=== PATIENT | male | born 1995 | race Two or more races ===

== ENCOUNTER 2022-05-04 22:48 | Emergency (ER) | payer OTHER ==
[2022-05-04 22:55] VITALS: BP 115/76; PULSE 94; RESP 17; TEMP 98.9; BMI 31.1
[2022-05-05] MEDS ORDERED: SODIUM CHLORIDE 0.9% 500 ML INFUS.BAG IV ONE (01:09)
[2022-05-05] MEDS ORDERED: ACETAMINOPHEN 1000 MG/100 ML BAG IVPB ONE (01:10)
[2022-05-05] MEDS ORDERED: ACETAMINOPHEN INJECTION 100 ML IVPB ONE (01:27)
[2022-05-05 01:41] LABS: HEMATOCRIT 44.8 % (35.4-49); HEMOGLOBIN 14.5 GM/dL (11.7-16.9); MCH 21.8 pg (25.7-33.7); MCHC 32.4 g/dl (32.0-35.9); MEAN CELL VOLUME 67.4 fl (80-96); MEAN PLT VOLUME 9.1 fl (7.5-11.1); PLATELET COUNT 205 10^3/uL (134-434); RBC 6.64 M/mm3 (4.00-5.60); RDW 14.8 % (11.9-15.9); WHITE BLOOD COUNT 9.1 K/mm3 (4.0-10.0)
[2022-05-05 02:27] LABS: ALBUMIN 3.6 g/dl (3.4-5.0); BLOOD UREA NITROGEN 23.8 mg/dL (7-18); CALCIUM 8.7 mg/dL (8.5-10.1)
[2022-05-05 02:30] LABS: CREATININE 1.3 mg/dL (0.55-1.3)
[2022-05-05 02:32] LABS: BILIRUBIN,TOTAL 0.4 mg/dL (0.2-1); TOT PROT 7.5 g/dl (6.4-8.2)
[2022-05-05 03:58] LABS: EPI CELLS 6 /uL (0-25.1); HYALINE CASTS 2 /uL (0-3.1); PH,URINE 5.5 (5.0-8.0); URINE APPEARANCE CLEAR; URINE BACTERIA 5 /uL (0-1359); URINE BILIRUBIN NEGATIVE (NEGATIVE); URINE COLOR YELLOW; URINE GLUCOSE (UA) NEGATIVE (NEGATIVE); URINE KETONE NEGATIVE (NEGATIVE); URINE LEUK ESTERASE NEGATIVE (NEGATIVE); URINE NITRITE NEGATIVE (NEGATIVE); URINE PROTEIN 1+ (NEGATIVE); URINE RBC 8 /uL (0-23.9); URINE UROBILINOGEN 0.2 mg/dL (0.2-1.0); URINE WBC 19 /uL (0-25.8)
[2022-05-05] MEDS ORDERED: ONDANSETRON 4 MG TABLET PO ONE (05:14)
[2022-05-05] MEDS ORDERED: ONDANSETRON *ODT* 4 MG TABLET SL ONE (05:14)
[2022-05-05] MEDS ORDERED: ONDANSETRON *ODT* 4 MG TABLET ONE (05:15)
[2022-05-05] MEDS: ONDANSETRON 4 MG/2 ML VIAL IVPUSH ONE ×2 (05:20→05:24)
== END 2022-05-05 05:32 | disposition home or self-care (01) ==
LOC: JER 22:48
PROC: 3E033GC Introduction of Other Therapeutic Substance into Peripheral Vein, Percutaneous Approach (ICD-10-PCS; principal; 2022-05-04)
DX: R10.84 Generalized abdominal pain (principal); R11.10 Vomiting, unspecified; R19.7 Diarrhea, unspecified
CPT/HCPCS: 0241U-QW; 36415; 74177-TC; 80053; 81003; 83690; 85027; 87086; 99285-25; Q0162; Q9967